=== PATIENT | female | born 1995 | race African-American/Black ===

== ENCOUNTER 2019-08-30 13:59 | Emergency (ER) | payer OTHER ==
[2019-08-30 14:17] VITALS: BP 122/63; TEMP 98.2; BMI 26.0
[2019-08-30] MEDS ORDERED: ONDANSETRON 4 MG/2 ML VIAL IVPUSH ONE (14:17)
--- NOTE | 2019-08-30 14:18 | PDOC ---
Rapid Medical Evaluation Chief Complaint: Nausea/Vomiting Time Seen by Provider: 08/30/19 14:14 Medical Evaluation: Allergies Allergy/AdvReac Type Severity Reaction Status Date / Time No Known Allergies Allergy Verified 08/30/19 14:11 08/30/19 14:14 I have performed a brief in-person evaluation of this patient. The patient presents with a chief complaint of:n/v shortly after eating breakfast at a hotel ~ 1hr ago. Also c/o upper abd pain. No f/c or acute change in BM. Had similar sxs in past and dx w/ gastritis Pertinent physical exam findings:Catina unwell, currently vomiting in triage I have ordered the following:labs/zofran The patient will proceed to the ED for further evaluation. Discharge Disposition - Diagnosis Nausea and vomiting Qualifiers: Vomiting type: unspecified Vomiting Intractability: intractable Qualified Code( s): R11.2 - Nausea with vomiting, unspecified - Referrals - Patient Instructions - Post Discharge Activity
[2019-08-30 14:20] VITALS: PULSE 92
[2019-08-30] MEDS ORDERED: ONDANSETRON *ODT* 4 MG TABLET ONE (14:46)
[2019-08-30 16:29] LABS: BASO % 0.2 % (0-2.0); EOS % 0.2 % (0-4.5); HEMATOCRIT 31.7 % (32.4-45.2); HEMOGLOBIN 9.2 GM/dL (10.7-15.3); LYMPH % 8.1 % (8-40); MCH 20.7 pg (25.7-33.7); MCHC 29.1 g/dl (32.0-36.0); MEAN CELL VOLUME 71.2 fl (80-96); MEAN PLT VOLUME 8.8 fl (7.5-11.1); MONO % 6.9 % (3.8-10.2); NEUT % 84.6 % (42.8-82.8); PLATELET COUNT 341 K/MM3 (134-434); RBC 4.45 M/mm3 (3.60-5.2); RDW 19.1 % (11.6-15.6)
[2019-08-30 16:36] LABS: URINE APPEARANCE TURBID; URINE BILIRUBIN NEGATIVE (NEGATIVE); URINE COLOR DK YELLOW; URINE GLUCOSE (UA) NEGATIVE (NEGATIVE); URINE KETONE NEGATIVE (NEGATIVE); URINE LEUK ESTERASE TRACE (NEGATIVE); URINE NITRITE NEGATIVE (NEGATIVE); URINE PROTEIN 2+ (NEGATIVE)
[2019-08-30 17:04] LABS: EPI CELLS 1 /HPF (0-5/HPF); URINE RBC 100 /hpf (0-4); URINE WBC 2 /hpf (0-5)
[2019-08-30 17:05] LABS: ALBUMIN 4.1 g/dl (3.4-5.0); BILIRUBIN,TOTAL 0.4 mg/dL (0.2-1); BLOOD UREA NITROGEN 13.4 mg/dL (7-18); CALCIUM 8.5 mg/dL (8.5-10.1); CREATININE 0.8 mg/dL (0.55-1.3); POTASSIUM 4.4 mmol/L (3.5-5.1)
[2019-08-30] MEDS ORDERED: SODIUM CHLORIDE 1,000 ML IV STA (17:06)
--- NOTE | 2019-08-30 17:06 | PDOC ---
History of Present Illness - General Chief Complaint: Nausea/Vomiting Stated Complaint: VOMITING Time Seen by Provider: 08/30/19 14:14 History Source: Patient Exam Limitations: No Limitations Past History - Travel Traveled outside of the country in the last 30 days: No Close contact w/someone who was outside of country & ill: No - Past Medical History Allergies/Adverse Reactions: Allergies Allergy/AdvReac Type Severity Reaction Status Date / Time No Known Allergies Allergy Verified 08/30/19 14:11 Home Medications: Ambulatory Orders Ondansetron [Zofran Odt -] 4 mg SL TID #10 od.tablet 08/30/19 COPD: No - Reproductive History Is Patient Now?: No - Immunization History Immunization Up to Date: Yes - Psycho Social/Smoking Cessation Hx Smoking History: Never smoked Hx Alcohol Use: No Drug/Substance Use Hx: No Review of Systems - Review of Systems Able to Perform ROS?: Yes Comments:: 08/30/19 18:59 CONSTITUTIONAL: Absent: fever, chills, diaphoresis, generalized weakness, malaise, loss of appetite HEENT: Absent: rhinorrhea, nasal congestion, throat pain, throat swelling, difficulty swallowing, mouth swelling, ear pain, eye pain, visual Changes CARDIOVASCULAR: Absent: chest pain, loss of consciousness, palpitations, irregular heart rate, peripheral edema RESPIRATORY: Absent: cough, shortness of breath, dyspnea with exertion, orthopnea, wheezing, stridor, hemoptysis GASTROINTESTINAL: Present: Abdominal pain, nausea, vomiting Absent: abdominal distension, diarrhea , constipation, melena, hematochezia GENITOURINARY: Absent: dysuria, frequency, urgency, hesitancy, hematuria, flank pain, genital pain MUSCULOSKELETAL: Absent: myalgia, arthralgia, joint swelling SKIN: Absent: rash, itching, pallor NEUROLOGIC: Absent: headache, focal weakness or paresthesias, dizziness, unsteady gait, seizure, mental status changes, bladder or bowel incontinence PSYCHIATRIC: Absent: anxiety, depression, suicidal or homicidal ideation, hallucinations. Is the patient limited Slovak proficient: No *Physical Exam - Vital Signs Last Vital Signs Temp Pulse Resp BP Pulse Ox 98.2 F 92 H 17 122/63 100 08/30/19 14:11 08/30/19 14:11 08/30/19 14:11 08/30/19 14:11 08/30/19 14:11 - Physical Exam 08/30/19 19:00 GENERAL: Well developed, well nourished. Awake and alert. No acute distress. HEENT: Normocephalic, atraumatic. PERRLA, EOMI. No conjunctival pallor. Sclera are non- icteric. Moist mucous membranes. Oropharynx is clear. NECK: Supple. Full ROM. No JVD. Carotid pulses 2+ and symmetric, without bruits. No thyromegaly. No lymphadenopathy. CARDIOVASCULAR: Regular rate and rhythm. No murmurs, rubs, or gallops. Distal pulses are 2+ and symmetric. PULMONARY: No evidence of respiratory distress. Lungs clear to auscultation bilaterally. No wheezing, rales or rhonchi. ABDOMINAL: Tenderness to palpation of the right lower quadrant. Soft. Non-tender. No rebound or guarding. No organomegaly. Normoactive bowel sounds. MUSCULOSKELETAL Normal range of motion at all joints. No bony deformities or tenderness. No CVA tenderness. EXTREMITIES: No cyanosis. No clubbing. No edema. No calf tenderness. SKIN: Warm and dry. Normal capillary refill. No rashes. No jaundice. NEUROLOGICAL: Alert, awake, appropriate. Cranial nerves 2-12 intact. No deficits to light touch and temperature in face, upper extremities and lower extremities. No motor deficits in the in face, upper extremities and lower extremities. Normoreflexic in the upper and lower extremities. Normal speech. Toes are down- going bilaterally. Gait is normal without ataxia. PSYCHIATRIC: Cooperative. Good eye contact. Appropriate mood and affect. ED Treatment Course - LABORATORY CBC & Chemistry Diagram: 08/30/19 15:00 08/30/19 15:00 - ADDITIONAL ORDERS Additional order review: Laboratory Results 08/30/19 08/30/19 15:00 15:00 Urine Color Dk yellow Urine Appearance Turbid Urine pH 5.0 Ur Specific [place] 1.039 H Urine Protein 2+ H Urine Glucose (UA) Negative Urine Ketones Negative Urine Blood 3+ H Urine Nitrite Negative Urine Bilirubin Negative Urine Urobilinogen 1.0 Ur Leukocyte Esterase Trace Urine WBC (Auto) 2 Urine RBC (Auto) 100 U Epithel Cells (Auto) 1 Urine HCG, Qual Negative 08/30/19 15:00 RBC 4.45 MCV 71.2 L MCHC 29.1 L RDW 19.1 H MPV 8.8 Neutrophils % 84.6 H Lymphocytes % 8.1 Monocytes % 6.9 Eosinophils % 0.2 Basophils % 0.2 - Medications Given in the ED: ED Medications Discontinued Medications Generic Name Dose Route Start Last Admin Trade Name Martín PRN Reason Stop Dose Admin Ondansetron HCl 4 mg 08/30/19 14:17 08/30/19 14:30 Zofran Injection IVPUSH 08/30/19 14:18 4 mg ONCE ONE Administration Medical Decision Making - Medical Decision Making 08/30/19 19:01 The patient is a 24-year-old female otherwise healthy, presents to the ER today for 1 day of nausea, vomiting and abdominal pain after eating breakfast at her hotel. She states that she threw up approximately 3-4 times today, NBNB. She states that she was nauseous and can stop vomiting so she came to the ER. She notes that she has some lower abdominal pain. Denies fevers, chills, flulike symptoms, earache, sore throat, urinary symptoms, diarrhea and constipation. A/P: Gastroenteritis On exam patient with tenderness palpation of the right lower quadrant. Fluids, labs, medication ordered from [facility]. Patient appears well at this time. WBCs are elevated at 19. Given right lower quadrant pain and elevated WBCs, CTAP ordered No evidence of appendicitis on CAT scan Likely a viral gastroenteritis Discharge home with symptomatic relief and primary care follow-up. I discussed the physical exam findings, ancillary test results and final diagnoses with the patient. I answered all of the patient's questions. The patient was satisfied with the care received and felt comfortable with the discharge plan and treatment plan. The Patient agrees to follow up with the primary care physician/specialist within 24-72 hours. Return precautions were given. Discharge - Discharge Information Problems reviewed: Yes Clinical Impression/Diagnosis: Nausea and vomiting Qualifiers: Vomiting type: unspecified Vomiting Intractability: intractable Qualified Code( s): R11.2 - Nausea with vomiting, unspecified Condition: Stable Disposition: HOME - Admission No - Additional Discharge Information Prescriptions: Ondansetron [Zofran Odt -] 4 mg SL TID #10 od.tablet - Follow up/Referral Referrals: Terrance Gordon MD [Staff Physician] - - Patient Discharge Instructions Patient Printed Discharge Instructions: DI for Vomiting -- Adult Additional Instructions: You have vomiting. You may take the Zofran every 8 hours as needed for nausea or vomiting. Avoid all dairy products until 48 hours after the vomiting/diarrhea has resolved. Eat a bland diet including apple sauce, toast, bananas, and plain rice Drink plenty of fluids including pedialyte, watered down juices and water Follow up with your primary care doctor this week Return to the ED if you develop fevers, abdominal pain, worsening vomiting, or if you have any changes in your symptoms. - Post Discharge Activity Work/Back to School Note: Back to Work
[2019-08-30 17:10] LABS: ANISOCYTOSIS 1+
[2019-08-30 17:11] LABS: OVALOCYTE 1+; PLATELET ESTIMATE ADEQUATE; TARGET CELLS 2+
== END 2019-08-30 19:01 | disposition home or self-care (01) ==
LOC: JER 13:59
PROC: 3E0337Z Introduction of Electrolytic and Water Balance Substance into Peripheral Vein, Percutaneous Approach (ICD-10-PCS; principal; 2019-08-30)
PROC: 3E033GC Introduction of Other Therapeutic Substance into Peripheral Vein, Percutaneous Approach (ICD-10-PCS; 2019-08-30)
DX: K52.9 Noninfective gastroenteritis and colitis, unspecified (principal)
CPT/HCPCS: 36415; 74177-TC; 80053; 81003; 83690; 84703; 85025; 99283-25; J7030; Q9967

== ENCOUNTER 2022-12-30 04:05 | Day surgery (SDC) | payer OTHER ==
[2022-12-29 12:15] VITALS: BMI 29.2
[~2022-12-30 04:05] MED LIST: BUPIVACAINE HCL/PF 2.5 MG/ML - 30 ML VIAL IJ ONE; LIDOCAINE 1%/EPI 1:100000 (20 ML MULTI DOSE VIAL) IJ ONE
[2022-12-30] MEDS ORDERED: BUPIVACAINE HCL/PF 0.25% (2.5MG/ML) 10 ML VIAL ONE (10:47)
[2022-12-30] MEDS ORDERED: MIDAZOLAM HCL 2 MG/2 ML SINGLE DOSE VIAL ONE (11:19)
[2022-12-30] MEDS ORDERED: PROPOFOL 20 ML ONE (11:19)
[2022-12-30] MEDS ORDERED: ceFAZolin SODIUM 1 GM VIAL ONE (11:58)
[2022-12-30] MEDS ORDERED: DEXAMETHASONE SOD PHOSPHATE 4 MG/1 ML VIAL ONE (12:07)
[2022-12-30] MEDS ORDERED: ONDANSETRON 4 MG/2 ML VIAL ONE (12:07)
[2022-12-30] MEDS ORDERED: BUPIVACAINE HCL/PF 2.5 MG/ML - 30 ML VIAL IJ ONE (13:03)
[2022-12-30] MEDS ORDERED: LIDOCAINE 1%/EPI 1:100000 (20 ML MULTI DOSE VIAL) IJ ONE (13:03)
[2022-12-30] MEDS ORDERED: BENZOIN/ALOE VERA/STORAX/TOLU 58 ML BOTTLE ONE (13:08)
[2022-12-30] MEDS ORDERED: KETOROLAC TROMETHAMINE 30 MG/1 ML VIAL ONE (13:16)
[2022-12-30] MEDS ORDERED: oxyCODONE HCL 5 MG TABLET PO PRN (13:34)
[2022-12-30] MEDS ORDERED: ONDANSETRON 4 MG/2 ML VIAL IVPUSH PRN (13:34)
[2022-12-30] MEDS ORDERED: ACETAMINOPHEN 1000 MG/100 ML BAG IVPB PRN (13:35)
[2022-12-30] MEDS ORDERED: LACTATED RINGERS SOLUTION 1,000 ML IV SCH (13:45)
[2022-12-30 16:22] VITALS: BP 121/71; PULSE 76; RESP 18; TEMP 98
== END 2022-12-30 16:25 | disposition home or self-care (01) ==
LOC: JASU-SURG 04:05
PROVIDERS: ATTEND Surgery Surgical Oncology
PROC: 0HBV0ZX Excision of Bilateral Breast, Open Approach, Diagnostic (ICD-10-PCS; principal; 2022-12-30 12:00)
DX: N60.12 Diffuse cystic mastopathy of left breast (principal); N60.11 Diffuse cystic mastopathy of right breast
CPT/HCPCS: 81025; 88305-TC; 94760